=== PATIENT | female | born 1960 | race African-American/Black ===

== ENCOUNTER 2021-08-06 14:32 | Emergency (ER) | payer MEDICARE, MEDICAID ==
[2021-08-06] MEDS ORDERED: methylPREDNISolone Sod Succ/PF 125 MG/2 ML VIAL ONE (15:29)
[2021-08-06 15:41] LABS: #Basophils 0.1 thou/uL (0.0-0.2); #Eosinphils 0.1 thou/uL (0.0-0.7); #Lymphocytes 2.2 thou/uL (1.20-3.40); #Monocytes 0.4 thou/uL (0.11-0.59); %Basophils 2.3 % (0.0-1.0); %Eosinophils 1.8 % (0.0-10.0); %Lymphocytes 46.2 % (21.0-51.0); %Neutrophils 41.8 % (42.0-75.0); Hemoglobin 12.4 g/dL (12.0-16.0); Mean Corpuscular HGB CONC 31.5 g/dL (32.0-36.0); Mean Corpuscular Volume 85.7 fL (78.0-98.0); Mean Platelet Volume 6.1 fL (7.4-10.4); Platelet Count 299 thou/uL (130-400); RBC Distribution Width 14.1 % (11.5-14.5); Red Blood Cell (RBC) Count 4.58 mill/uL (4.20-5.40); White Blood Cell (WBC) Count 4.7 thou/uL (4.8-10.8)
[2021-08-06 15:43] LABS: ALT (SGPT) 11 U/L (8-55); AST (SGOT) 11 U/L (5-34); Albumin 4.1 g/dL (3.4-4.8); Alkaline Phosphatase 65 U/L (40-110); Anion Gap 13 mmol/L (10-20); BUN (Urea Nitrogen) 14 mg/dL (9.8-20.1); Bilirubin, Total 0.3 mg/dL (0.2-1.2); Calc. Creatinine Clearance 0 mL/min (70-130); Calcium 8.9 mg/dL (7.8-10.44); Carbon Dioxide 26 mmol/L (23-31); Chloride 108 mmol/L (98-107); Globulin 3.6 g/dL (2.4-3.5); Glucose 94 mg/dL (80-115); Protein, Total 7.7 g/dL (5.8-8.1); Sodium 143 mmol/L (136-145)
[2021-08-06 16:22] LABS: Bilirubin Negative (Negative); Blood, Urine Negative (Negative); Clarity Clear (Clear); Glucose, Urine (Dipstick) Negative (Negative); Ketone, Urine Negative (Negative); Leukocyte Negative (Negative); Nitrite Positive (Negative); Protein, Urine (Dipstick) Negative (Neg-Trace); pH, Urine 7.5 (5.0-9.0)
[2021-08-06 17:05] LABS: Bacteria/HPF 2+ HPF (None Seen); RBC/HPF None Seen HPF (0-3); Squamous Epithelial 0-3 HPF (0-3); WBC/HPF 0-3 HPF (0-3)
[2021-08-06 17:50] LABS: SARS-CoV-2 NAA Rapid Test Not Detected (NotDetected)
== END 2021-08-06 17:35 | disposition short-term general hospital (02) ==
LOC: BURERS 14:32
DX: G35 Multiple sclerosis (principal); Z20.822 Contact with and (suspected) exposure to COVID-19
CPT/HCPCS: 0240U; 70450; 80053; 84484; 85025; 87077; 87086; 87186; 93005; 94760; 96374; 99285; 81003; 81015; J2930